=== PATIENT | female | born 1990 | race Caucasian/White ===

== ENCOUNTER 2018-02-16 22:38 | Emergency (ER) | payer OTHER ==
[~2018-02-16] VITALS: Ht 157.5 cm; Wt 92.0 kg
[~2018-02-16 22:38] MED LIST: PRENTAB72 PO; SYNT25TA OR
[2018-02-16 22:53] VITALS: BP 129/64; PULSE 81; RESP 20; TEMP 98.3; O2SAT 99
[2018-02-16] MEDS ORDERED: SYNT25TA PO (22:59)
[2018-02-16] MEDS ORDERED: SE-NCHW CHEW (22:59)
--- NOTE | 2018-02-16 23:48 | RADRPT ---
EXAM DATE/TIME: 02/16/2018 23:27 [facility] COMPARISON: No previous studies available for comparison. INDICATIONS : Chest pain. MEDICAL HISTORY : None. SURGICAL HISTORY : None. ENCOUNTER: Initial ACUITY: 1 day PAIN SCORE: 2/10 LOCATION: Bilateral chest FINDINGS: A single view of the chest demonstrates the lungs to be symmetrically aerated without evidence of mas s, infiltrate or effusion. The cardiomediastinal contours are unremarkable. Osseous structures are intact. CONCLUSION: 1. No acute cardiopulmonary disease. Smith James MD on February 16, 2018 at 23:46 Board Certified Radiologist. This report was verified electronically.
[2018-02-16 23:52] LABS: AUTOMATED NEUTROPHIL # 8.9 TH/MM3 (1.8-7.7); BASOPHIL # 0.1 TH/MM3 (0-0.2); BASOPHIL % 0.6 % (0.0-2.0); EOSINOPHIL # 0.1 TH/MM3 (0-0.4); EOSINOPHIL % 1.2 % (0.0-4.0); HEMOGLOBIN 12.8 GM/DL (11.6-15.3); LYMPH % 18.6 % (9.0-44.0); LYMPHOCYTE # 2.2 TH/MM3 (1.0-4.8); MEAN CELL VOLUME 87.7 FL (80.0-100.0); MEAN CORPUSCULAR HEMOGLOBIN 31.1 PG (27.0-34.0); MEAN CORPUSCULAR HGB CONC 35.5 % (32.0-36.0); MEAN PLATELET VOLUME 7.4 FL (7.0-11.0); MONO % 5.7 % (0.0-8.0); MONOCYTE # 0.7 TH/MM3 (0-0.9); NEUT % 73.9 % (16.0-70.0); PLATELET COUNT 317 TH/MM3 (150-450)
[2018-02-17 00:23] LABS: BACTERIA, URINE OCC /hpf; BILIRUBIN, URINE NEG (NEG); BLOOD, URINE NEG (NEG); GLUCOSE,URINE TRACE mg/dL (NEG); KETONE, URINE NEG (NEG); MUCUS URINE FEW /lpf (OCC); NITRITE,URINE NEG (NEG); SQUAMOUS EPITHELIAL CELL URINE 1 /hpf (0-5); URINE COLOR YELLOW (YELLW/STRAW); URINE LEUKOCYTE ESTERASE NEG (NEG)
[2018-02-17 00:31] LABS: ALBUMIN 3.5 GM/DL (3.4-5.0); ALT (GPT) 46 U/L (10-53); AST (GOT) 23 U/L (15-37); BICARBONATE 24.6 MEQ/L (21.0-32.0); BLOOD UREA NITROGEN 11 MG/DL (7-18); CALCIUM 8.7 MG/DL (8.5-10.1); CHLORIDE 106 MEQ/L (98-107); CREATININE 0.67 MG/DL (0.50-1.00); GLOMERULAR FILTRATION RATE 105 ML/MIN (>89); GLUCOSE,RANDOM 113 MG/DL (74-106); SODIUM (NA) 138 MEQ/L (136-145)
[2018-02-17 00:48] LABS: ALKALINE PHOSPHATASE 54 U/L (45-117); TOTAL BILIRUBIN ADULT 0.2 MG/DL (0.2-1.0); TOTAL PROTEIN 7.5 GM/DL (6.4-8.2)
--- NOTE | 2018-02-17 01:10 | RADRPT ---
EXAM DATE/TIME: 02/17/2018 00:27 [facility] COMPARISON: No previous studies available for comparison. INDICATIONS : Ectopic. SOB. LAB(S): [facility] MEDICAL HISTORY : None. SURGICAL HISTORY : None. ENCOUNTER: Initial ACUITY: 1 day PAIN SCORE: 0/10 LOCATION: Bilateral pelvis MEASUREMENTS: UTERUS: 11.1 x 3.8 x 5.9 cm ENDOMETRIAL STRIPE: 18 mm RIGHT OVARY: Not visualized. cm LEFT OVARY: 2.8 x 1.9 x 1.9 cm CROWN RUMP LENGTH: Not seen FINDINGS: There is a hypoechoic region measuring in the uterine fundus though a pole or yolk sac is not i dentified. No adnexal masses are identified. No free fluid is identified. Ectopic cannot be excluded. The ovaries are normal in size and shape without evidence of focal mass. CONCLUSION: 1. Sac like structure in the uterine fundus which may reflect early intrauterine or pseudo- sac. Ectopic cannot be excluded 2. Followup examination in 7-10 days is recommended Smith James MD on February 17, 2018 at 1:06 Board Certified Radiologist. This report was verified electronically.
--- NOTE | 2018-02-17 01:52 | PD ---
HPI Chief Complaint: Abdominal Pain Time Seen by Provider: 23:02 Travel History International Travel<30 days: No Contact w/Intl Traveler<30days: No Traveled to known affect area: No History of Present Illness HPI 28-year-old female arrives to the ER describing a sensation of abdominal tightness and shortness of breath. She is 3 para 2 last menstruation was November 23 making her based on dates 10 weeks . She denies vaginal bleeding discharge. She has no chest pain or shortness of breath in the ED. No fever chills. No nausea vomiting. Vaginal bleeding. Symptoms resolved after about 20 minutes. Patient believes vitamin gas because with every bowel she reports ongoing improvement. Initially the pain was severe and diaphoresis was associated however it has since resolved as noted. Patient will follow up with obstetrics in [place]. [facility] Past Medical History Diminished Hearing: No ?: LMP: 11/23/17 Social History Alcohol Use: No Tobacco Use: No Substance Use: No Allergies-Medications (Allergen,Severity, Reaction): Coded Allergies: codeine (Unverified Allergy, Severe, 02/16/18) penicillin G (Unverified Allergy, Severe, SORE THROAT, 02/16/18) Reported Meds & Prescriptions Reported Meds & Active Scripts Active Reported Se- 19 29-1 mg Chew ( Vit W/ Ferrous Fumara Chew) 1 Chew 1 Tab CHEW DAILY Synthroid (Levothyroxine Sodium) 25 Mcg Tab 25 Mcg PO DAILY Review of Systems Except as stated in HPI: all other systems reviewed are Neg General / Constitutional: No: Fever Physical Exam Narrative GENERAL: 28 yo F, WNWD Vital Signs Date Time Temp Pulse Resp B/P (MAP) Pulse Ox O2 Delivery O2 Flow Rate FiO2 02/16/18 22:53 98.3 81 20 129/64 (85) 99 SKIN: Warm and dry. HEAD: Atraumatic. Normocephalic. EYES: Pupils equal and round. No scleral icterus. No injection or drainage. ENT: No nasal bleeding or discharge. Mucous membranes pink and moist. NECK: Trachea midline. No JVD. CARDIOVASCULAR: Regular rate and rhythm. RESPIRATORY: No accessory muscle use. Clear to auscultation. Breath sounds equal bilaterally. GASTROINTESTINAL: Abdomen soft, non-tender, nondistended. Hepatic and splenic margins not palpable. MUSCULOSKELETAL: Extremities without clubbing, cyanosis, or edema. No obvious deformities. NEUROLOGICAL: Awake and alert. No obvious cranial nerve deficits. Motor grossly within normal limits. Five out of 5 muscle strength in the arms and legs. Normal speech. PSYCHIATRIC: Appropriate mood and affect; insight and judgment normal. Data Data Last Documented VS Vital Signs Date Time Temp Pulse Resp B/P (MAP) Pulse Ox O2 Delivery O2 Flow Rate FiO2 02/16/18 22:53 98.3 81 20 129/64 (85) 99 Orders Orders Beta Hcg (Quant/Titer) (02/16/18 23:14) Complete Blood Count With Diff (02/16/18 23:14) Comprehensive Metabolic Panel (02/16/18 23:14) Us Pelvis (Ques Preg/Ectopic) (02/16/18 ) Urinalysis - C+S If Indicated (02/16/18 23:14) Iv Access Insert/Monitor (02/16/18 23:14) Ecg Monitoring (02/16/18 23:14) Chest, Single Ap (02/16/18 ) D-Dimer (02/16/18 23:14) Lipase (02/16/18 23:14) Ed Urine Pregnancytest Poc (02/17/18 00:11) Ed Discharge Order (02/17/18 02:31) Labs Laboratory Tests Test 02/16/18 21:58 02/16/18 23:30 Urine Color YELLOW Urine Turbidity CLEAR Urine pH 6.0 Urine Specific [place] 1.024 Urine Protein 30 mg/dL Urine Glucose (UA) TRACE mg/dL Urine Ketones NEG mg/dL Urine Occult Blood NEG Urine Nitrite NEG Urine Bilirubin NEG Urine Urobilinogen 2.0 MG/DL Urine Leukocyte Esterase NEG Urine RBC 1 /hpf Urine WBC 5 /hpf Urine Squamous Epithelial Cells 1 /hpf Urine Bacteria OCC /hpf Urine Mucus FEW /lpf Microscopic Urinalysis Comment CULT NOT INDICATED White Blood Count 12.0 TH/MM3 Red Blood Count 4.10 MIL/MM3 Hemoglobin 12.8 GM/DL Hematocrit 36.0 % Mean Corpuscular Volume 87.7 FL Mean Corpuscular Hemoglobin 31.1 PG Mean Corpuscular Hemoglobin Concent 35.5 % Red Cell Distribution Width 13.0 % Platelet Count 317 TH/MM3 Mean Platelet Volume 7.4 FL Neutrophils (%) (Auto) 73.9 % Lymphocytes (%) (Auto) 18.6 % Monocytes (%) (Auto) 5.7 % Eosinophils (%) (Auto) 1.2 % Basophils (%) (Auto) 0.6 % Neutrophils # (Auto) 8.9 TH/MM3 Lymphocytes # (Auto) 2.2 TH/MM3 Monocytes # (Auto) 0.7 TH/MM3 Eosinophils # (Auto) 0.1 TH/MM3 Basophils # (Auto) 0.1 TH/MM3 CBC Comment DIFF FINAL Differential Comment D-Dimer Quantitative (PE/DVT) 0.49 MG/L FEU Blood Urea Nitrogen 11 MG/DL Creatinine 0.67 MG/DL Random Glucose 113 MG/DL Total Protein 7.5 GM/DL Albumin 3.5 GM/DL Calcium Level 8.7 MG/DL Alkaline Phosphatase 54 U/L Aspartate Amino Transf (AST/SGOT) 23 U/L Alanine Aminotransferase (ALT/SGPT) 46 U/L Total Bilirubin 0.2 MG/DL Sodium Level 138 MEQ/L Potassium Level 3.4 MEQ/L Chloride Level 106 MEQ/L Carbon Dioxide Level 24.6 MEQ/L Anion Gap 7 MEQ/L Estimat Glomerular Filtration Rate 105 ML/MIN Lipase 152 U/L Human Chorionic Gonadotropin, Quant 11234 MIU/ML MDM Medical Decision Making Medical Screen Exam Complete: Yes Emergency Medical Condition: Yes Medical Record Reviewed: Yes Differential Diagnosis Anemia, electro imbalance, UTI, intrauterine , ectopic , pancreatitis, gastritis Narrative Course CBC & BMP Diagram 02/16/18 23:30 Total Protein 7.5, Albumin 3.5, Calcium Level 8.7, Alkaline Phosphatase 54, Aspartate Amino Transf (AST/SGOT) 23, Alanine Aminotransferase (ALT/SGPT) 46, Total Bilirubin 0.2 Lipase 20,534 Lipase 152 Dimer 0.49 UA occasional bacteria Ultrasound: Ultrasound reveals saclike structure in uterine fundus which may reflect early intrauterine or pseudo-sac. Ectopic cannot be excluded. Right ovary not visualized. Case was discussed with on-call floors buffer Dr. Crook. Recommendation was made for repeat beta hCG in 48 hours with a repeat ultrasound. The patient has floors buffer in [place] she states she will follow with. Interval return precautions discussed. Overall the patient's abdomen is soft and nontender. There is no vaginal bleeding and the pretest probability for ectopic is considered exceedingly low such that discharge is considered reasonably safe. Diagnosis Primary Impression: Blighted ovum Referrals: [employer] 2 days Additional Instructions: Beta 20,534 Please follow up with floors buffer in 48 hours for repeat evaluation and blood work. Med/Other Pt SpecificInfo: No Change to Meds Disposition: 01 DISCHARGE HOME Condition: Stable Yaniv Lambert MD Feb 17, 2018 01:52
== END 2018-02-17 03:08 | disposition home or self-care (01) ==
LOC: NEPC 22:38
DX: O02.0 Blighted ovum and nonhydatidiform mole (principal)
CPT/HCPCS: 71045; 76700; 80053; 81001; 83690; 84702; 84703; 85025; 85379; 99284